=== PATIENT | male | born 1955 | race Caucasian/White ===

== ENCOUNTER 2019-05-16 10:30 | Inpatient (IN) ==
[2019-05-16 11:27] LABS: Basophils # 0.1 K/mcL (0.0-0.2); Basophils % 0.6 %; Eosinophils # 0.1 K/mcL (0.0-0.6); Eosinophils % 1.5 %; Hematocrit 20.9 % (37.5-50.1); Lymphocytes # 1.3 K/mcL (0.6-4.6); Lymphocytes % 14.7 %; Mean Corpuscular HGB Conc 25.4 g/dL (31.6-35.5); Mean Corpuscular Hemoglobin 16.1 pg (28.0-33.3); Mean Corpuscular Volume 63.3 fL (83.0-100.0); Mean Platelet Volume 9.1 fL (9.4-12.4); Monocytes % 10.7 %; Neutrophils # 6.5 K/mcL (1.6-8.9); Nucleated Red Blood Cells 0.9 /100 WBC (0); Platelet Count 433 K/mcL (140-400); Red Cell Distribution Width 19.4 % (11.5-14.5); Segmented Neutrophils % 71.5 %; White Blood Count 9.1 K/mcL (4.3-11.1)
[2019-05-16 11:41] LABS: Prothrombin Time 11.5 Seconds (9.4-12.1)
[2019-05-16 11:43] LABS: BUN/Creatinine Ratio 16 (6-26); Blood Urea Nitrogen 15 mg/dL (8-23); Calcium 9.4 mg/dL (8.6-10.3); Carbon Dioxide 22 mEq/L (23-29); Chloride 103 mEq/L (98-107); Glucose 146 mg/dL (70-105); Osmolality,Calculated 289 (280-300); Potassium 3.9 mEq/L (3.5-5.1); Sodium 138 mEq/L (136-145); eGFR For African Americans > 60 (> 60); eGFR For Non-African Americans > 60 (> 60)
[2019-05-16 11:44] LABS: Activated Partial Thrombo Time 26.6 Seconds (26.0-36.0)
[2019-05-16 11:49] LABS: Hemoglobin 5.3 g/dL (12.9-16.9)
[2019-05-16 12:01] LABS: Hypochromasia Present (Not Present); Polychromasia 1+ (Not Present)
[2019-05-16 12:02] LABS: Anisocytosis 1+ (Not Present); Microcytosis Present (Not Present)
[2019-05-16] MEDS ORDERED: Naloxone 0.4 MG/ML INJ IVP PRN (12:11)
[2019-05-16] MEDS ORDERED: Ondansetron 4 MG/2 ML VIAL IVP PRN (12:11)
[2019-05-16] MEDS ORDERED: *HR* Dextrose 50 % in Water (Syg) 50 ML SYRINGE IVP PRN (12:13)
[2019-05-16] MEDS ORDERED: D5% in Water 1,000 ML IVC PRN (12:13)
[2019-05-16] MEDS ORDERED: Dextrose Gel 15 GM/37.5 ML TUBE PO PRN ×2 (12:13)
[2019-05-16] MEDS ORDERED: 0.9 % Sodium Chloride 250 ML ONE ×2 (12:30→15:56)
[2019-05-16 12:38] LABS: Alanine Aminotransferase 45 Units/L (7-52); Albumin 4.2 g/dL (3.5-5.7); Albumin/Globulin Ratio 1.5 (1.1-2.2); Alkaline Phosphatase 49 Units/L (34-104); Aspartate Amino Transferase 34 Units/L (13-39); Bilirubin,Direct 0.1 mg/dL (0.0-0.2); Bilirubin,Indirect 0.2 mg/dL (0.0-1.2); Bilirubin,Total 0.3 mg/dL (0.3-1.0); Globulin 2.8 g/dL (2.4-3.5)
[2019-05-16] MEDS: Pantoprazole 40 MG VIAL IVP SCH ×2 (15:18→16:47)
[2019-05-16] MEDS: Insulin LISPRO 300 UNITS/3 ML VIAL SQ SCH (16:47)
[2019-05-16] MEDS: D5% in 0.9% NACL 1,000 ML IVC SCH (20:08)
[2019-05-16 21:05] LABS: Mean Corpuscular Hemoglobin 19.3 pg (28.0-33.3); Segmented Neutrophils % 63.2 %
[2019-05-16 21:07] LABS: Basophils # 0.1 K/mcL (0.0-0.2); Basophils % 0.6 %; Eosinophils # 0.2 K/mcL (0.0-0.6); Eosinophils % 2.3 %; Hematocrit 26.3 % (37.5-50.1); Hemoglobin 7.3 g/dL (12.9-16.9); Immature Granulocytes % 1.6 % (0-4); Lymphocytes # 1.7 K/mcL (0.6-4.6); Lymphocytes % 18.8 %; Mean Corpuscular HGB Conc 27.8 g/dL (31.6-35.5); Mean Corpuscular Volume 69.6 fL (83.0-100.0); Mean Platelet Volume 9.1 fL (9.4-12.4); Monocytes # 1.2 K/mcL (0.0-1.3); Monocytes % 13.5 %; Neutrophils # 5.6 K/mcL (1.6-8.9); Nucleated Red Blood Cells 0.9 /100 WBC (0); Platelet Count 401 K/mcL (140-400); Red Blood Count 3.78 M/mcL (4.19-5.50); Red Cell Distribution Width 23.4 % (11.5-14.5); White Blood Count 8.9 K/mcL (4.3-11.1)
[2019-05-16 21:29] LABS: Anisocytosis 3+ (Not Present); Hypochromasia Present (Not Present); Microcytosis Present (Not Present)
[2019-05-16 22:19] LABS: Hematocrit 25.3 % (37.5-50.1); Hemoglobin 7.1 g/dL (12.9-16.9)
[2019-05-17] MEDS: Insulin LISPRO 300 UNITS/3 ML VIAL SQ SCH ×4 (01:02→17:11)
[2019-05-17 04:22] LABS: Hemoglobin 7.2 g/dL (12.9-16.9)
[2019-05-17 04:24] LABS: Hematocrit 25.4 % (37.5-50.1); Mean Corpuscular HGB Conc 28.3 g/dL (31.6-35.5); Mean Corpuscular Hemoglobin 19.3 pg (28.0-33.3); Mean Corpuscular Volume 67.9 fL (83.0-100.0); Mean Platelet Volume 9.3 fL (9.4-12.4); Platelet Count 395 K/mcL (140-400); Red Blood Count 3.74 M/mcL (4.19-5.50); Red Cell Distribution Width 22.9 % (11.5-14.5); White Blood Count 8.5 K/mcL (4.3-11.1)
[2019-05-17 04:48] LABS: BUN/Creatinine Ratio 13 (6-26); Blood Urea Nitrogen 12 mg/dL (8-23); Carbon Dioxide 23 mEq/L (23-29); Chloride 109 mEq/L (98-107); Glucose 106 mg/dL (70-105); Magnesium 2.4 mg/dL (1.6-2.6); Osmolality,Calculated 288 (280-300); Phosphorous 3.7 mg/dL (2.7-4.5); Potassium 3.8 mEq/L (3.5-5.1); Sodium 139 mEq/L (136-145); eGFR For African Americans > 60 (> 60); eGFR For Non-African Americans > 60 (> 60)
[2019-05-17 04:50] LABS: % Iron Saturation 2 % (20-55); Iron 11 mcg/dL (65-175); Transferrin 379 mg/dL (203-362)
[2019-05-17] MEDS: Pantoprazole 40 MG VIAL IVP SCH ×2 (06:44→17:10)
[2019-05-17] MEDS: D5% in 0.9% NACL 1,000 ML IVC SCH ×2 (09:41→22:09)
[2019-05-17] MEDS: Iron Sucrose Complex 200 MG in 0.9 % Sodium Chloride 100 ML IVPB SCH (10:43)
[2019-05-17] MEDS ORDERED: SODIUM CHLORIDE/NAHCO3/KCL/PEG 4,000 ML SOLN.RECON PO ONE (17:00)
[2019-05-18] MEDS: D5% in 0.9% NACL 1,000 ML IVC SCH ×2 (04:45→12:29)
[2019-05-18] MEDS: Insulin LISPRO 300 UNITS/3 ML VIAL SQ SCH ×4 (04:45→17:44)
[2019-05-18] MEDS: Pantoprazole 40 MG VIAL IVP SCH ×2 (05:39→17:44)
[2019-05-18 07:27] LABS: Mean Corpuscular Hemoglobin 19.2 pg (28.0-33.3); Red Cell Distribution Width 23.4 % (11.5-14.5)
[2019-05-18 07:28] LABS: Hematocrit 24.9 % (37.5-50.1); Hemoglobin 6.9 g/dL (12.9-16.9); Mean Corpuscular HGB Conc 27.7 g/dL (31.6-35.5); Mean Corpuscular Volume 69.2 fL (83.0-100.0); Mean Platelet Volume 9.4 fL (9.4-12.4); Platelet Count 403 K/mcL (140-400); White Blood Count 9.1 K/mcL (4.3-11.1)
[2019-05-18 07:42] LABS: BUN/Creatinine Ratio 7 (6-26); Blood Urea Nitrogen 7 mg/dL (8-23); Calcium 8.9 mg/dL (8.6-10.3); Carbon Dioxide 25 mEq/L (23-29); Chloride 107 mEq/L (98-107); Glucose 100 mg/dL (70-105); Osmolality,Calculated 292 (280-300); Potassium 3.6 mEq/L (3.5-5.1); Sodium 142 mEq/L (136-145); eGFR For African Americans > 60 (> 60); eGFR For Non-African Americans > 60 (> 60)
[2019-05-18] MEDS: Iron Sucrose Complex 200 MG in 0.9 % Sodium Chloride 100 ML IVPB SCH (08:41)
[2019-05-18] MEDS ORDERED: Propofol 500 MG/50 ML INFUS..BTL ONE (12:26)
[2019-05-18] MEDS ORDERED: *HR* Heparin 5,000 UNIT/ML VIAL ONE (12:47)
[2019-05-18] MEDS ORDERED: Lidocaine -MPF 2% 2 ML VIAL ONE (12:48)
[2019-05-18] MEDS ORDERED: *HR* Propofol 200 MG/20 ML VIAL IVP ONE ×2 (12:59→13:10)
[2019-05-18] MEDS ORDERED: 0.9 % Sodium Chloride 1,000 ML IVC SCH (13:30)
[2019-05-18] MEDS ORDERED: 0.9 % Sodium Chloride 250 ML ONE (17:40)
[2019-05-19] MEDS: Insulin LISPRO 300 UNITS/3 ML VIAL SQ SCH (01:21)
[2019-05-19 02:47] LABS: Hemoglobin 7.8 g/dL (12.9-16.9)
[2019-05-19 02:48] LABS: Hematocrit 27.8 % (37.5-50.1); Mean Corpuscular HGB Conc 28.1 g/dL (31.6-35.5); Mean Corpuscular Hemoglobin 20.5 pg (28.0-33.3); Mean Platelet Volume 9.3 fL (9.4-12.4); Platelet Count 390 K/mcL (140-400); Red Blood Count 3.81 M/mcL (4.19-5.50); Red Cell Distribution Width 25.2 % (11.5-14.5); White Blood Count 9.4 K/mcL (4.3-11.1)
[2019-05-19 07:29] VITALS: BP 127/74
[2019-05-19] MEDS: D5% in 0.9% NACL 1,000 ML IVC SCH (07:29)
[2019-05-19] MEDS ORDERED: Insulin LISPRO 300 UNITS/3 ML VIAL SQ SCH ×2 (07:30→21:00)
[2019-05-19] MEDS: Iron Sucrose Complex 200 MG in 0.9 % Sodium Chloride 100 ML IVPB SCH (08:18)
== END 2019-05-19 10:15 | disposition home or self-care (01) | DRG 379 ==
LOC: EMEROOARM 10:30 → 2ANU 10:30 → SUATTDRO 12:45 → 2ANU 13:41
PROVIDERS: ADMIT Internal Medicine; ATTEND Internal Medicine
PROC: ENDOEBX (2019-05-18 13:00)

== ENCOUNTER 2019-11-04 05:12 | Observation (INO) ==
[2019-11-04] MEDS ORDERED: 0.9 % Sodium Chloride 1,000 ML IVC ONE (06:32)
[2019-11-04] MEDS ORDERED: Ondansetron 4 MG/2 ML VIAL IVP ONE (06:32)
[2019-11-04 06:35] LABS: INR 1.1; Prothrombin Time 12.6 Seconds (9.4-12.1)
[2019-11-04] MEDS ORDERED: Pantoprazole 40 MG VIAL IVP ONE (06:35)
[2019-11-04 06:38] LABS: Activated Partial Thrombo Time 25.9 Seconds (26.0-36.0)
[2019-11-04 06:42] LABS: Basophils # 0.1 K/mcL (0.0-0.2); Basophils % 0.4 %; Eosinophils % 0.3 %; Hematocrit 35.8 % (37.5-50.1); Hemoglobin 11.5 g/dL (12.9-16.9); Immature Granulocytes % 0.6 % (0-4); Lymphocytes # 1.3 K/mcL (0.6-4.6); Lymphocytes % 10.6 %; Mean Corpuscular HGB Conc 32.1 g/dL (31.6-35.5); Mean Corpuscular Hemoglobin 25.6 pg (28.0-33.3); Mean Corpuscular Volume 79.7 fL (83.0-100.0); Mean Platelet Volume 9.6 fL (9.4-12.4); Monocytes % 8.2 %; Neutrophils # 9.4 K/mcL (1.6-8.9); Platelet Count 281 K/mcL (140-400); Red Blood Count 4.49 M/mcL (4.19-5.50); Red Cell Distribution Width 21.6 % (11.5-14.5); Segmented Neutrophils % 79.9 %; White Blood Count 11.8 K/mcL (4.3-11.1)
[2019-11-04 06:53] LABS: Alanine Aminotransferase 41 Units/L (7-52); Albumin/Globulin Ratio 1.5 (1.1-2.2); Alkaline Phosphatase 55 Units/L (34-104); Aspartate Amino Transferase 21 Units/L (13-39); BUN/Creatinine Ratio 34 (6-26); Bilirubin,Total 0.3 mg/dL (0.3-1.0); Blood Urea Nitrogen 30 mg/dL (8-23); Carbon Dioxide 19 mEq/L (23-29); Chloride 103 mEq/L (98-107); Globulin 2.7 g/dL (2.4-3.5); Glucose 237 mg/dL (70-105); Lipase 10 Units/L (11-82); Osmolality,Calculated 294 (280-300); Potassium 4.3 mEq/L (3.5-5.1); Sodium 135 mEq/L (136-145); Total Protein 6.7 g/dL (6.4-8.9); Troponin I < 0.03 ng/mL (< 0.04); eGFR For African Americans > 60 (> 60); eGFR For Non-African Americans > 60 (> 60)
[2019-11-04] MEDS ORDERED: Naloxone 0.4 MG/ML INJ IVP PRN (09:16)
[2019-11-04] MEDS ORDERED: Ondansetron 4 MG/2 ML VIAL IVP PRN (09:16)
[2019-11-04] MEDS: 0.9 % Sodium Chloride 1,000 ML IVC SCH (09:49)
[2019-11-04] MEDS: Pantoprazole 40 MG in 0.9 % Sodium Chloride Mini Bag 100 ML IVC SCH ×2 (09:51→16:00)
[2019-11-04 17:02] LABS: Basophils % 0.3 %; Eosinophils # 0.1 K/mcL (0.0-0.6); Eosinophils % 0.5 %; Hematocrit 34.1 % (37.5-50.1); Hemoglobin 10.9 g/dL (12.9-16.9); Immature Granulocytes % 0.5 % (0-4); Lymphocytes # 2.1 K/mcL (0.6-4.6); Lymphocytes % 18.1 %; Mean Corpuscular Hemoglobin 25.6 pg (28.0-33.3); Mean Corpuscular Volume 80.2 fL (83.0-100.0); Mean Platelet Volume 9.5 fL (9.4-12.4); Monocytes # 1.2 K/mcL (0.0-1.3); Neutrophils # 8.3 K/mcL (1.6-8.9); Platelet Count 283 K/mcL (140-400); Red Blood Count 4.25 M/mcL (4.19-5.50); Red Cell Distribution Width 21.8 % (11.5-14.5); Segmented Neutrophils % 70.6 %; White Blood Count 11.7 K/mcL (4.3-11.1)
[2019-11-04] MEDS ORDERED: *HR* Propofol 200 MG/20 ML VIAL IVP ONE (17:04)
[2019-11-04] MEDS ORDERED: Lidocaine -MPF 2% 2 ML VIAL ONE (17:04)
[2019-11-04] MEDS ORDERED: *HR* FentaNYL (PF) 100 MCG/2 ML VIAL ONE (17:04)
[2019-11-04] MEDS: Gabapentin 300 MG CAPSULE PO SCH (20:05)
[2019-11-05] MEDS: 0.9 % Sodium Chloride 1,000 ML IVC SCH ×2 (00:13→10:48)
[2019-11-05] MEDS: Pantoprazole 40 MG in 0.9 % Sodium Chloride Mini Bag 100 ML IVC SCH ×3 (00:34→07:11)
[2019-11-05 08:31] LABS: Basophils % 0.5 %; Eosinophils # 0.2 K/mcL (0.0-0.6); Eosinophils % 2.2 %; Hematocrit 28.4 % (37.5-50.1); Immature Granulocytes % 0.5 % (0-4); Lymphocytes # 1.8 K/mcL (0.6-4.6); Lymphocytes % 20.6 %; Mean Corpuscular HGB Conc 31.7 g/dL (31.6-35.5); Mean Corpuscular Hemoglobin 25.6 pg (28.0-33.3); Mean Corpuscular Volume 80.9 fL (83.0-100.0); Mean Platelet Volume 9.2 fL (9.4-12.4); Monocytes # 0.9 K/mcL (0.0-1.3); Neutrophils # 5.7 K/mcL (1.6-8.9); Platelet Count 228 K/mcL (140-400); Red Blood Count 3.51 M/mcL (4.19-5.50); Segmented Neutrophils % 66.2 %; White Blood Count 8.6 K/mcL (4.3-11.1)
[2019-11-05 08:48] LABS: BUN/Creatinine Ratio 18 (6-26); Blood Urea Nitrogen 16 mg/dL (8-23); Calcium 8.3 mg/dL (8.6-10.3); Carbon Dioxide 22 mEq/L (23-29); Chloride 110 mEq/L (98-107); Glucose 118 mg/dL (70-105); Magnesium 1.8 mg/dL (1.6-2.6); Osmolality,Calculated 288 (280-300); Phosphorous 3.2 mg/dL (2.7-4.5); Potassium 3.9 mEq/L (3.5-5.1); Sodium 138 mEq/L (136-145); eGFR For African Americans > 60 (> 60); eGFR For Non-African Americans > 60 (> 60)
[2019-11-05] MEDS ORDERED: Iron Sucrose Complex 400 MG in 0.9 % Sodium Chloride 250 ML IVPB SCH (12:02)
[2019-11-05] MEDS: Pantoprazole 40 MG VIAL IVP SCH (18:17)
[2019-11-05] MEDS: Gabapentin 300 MG CAPSULE PO SCH (21:05)
[2019-11-06] MEDS: Pantoprazole 40 MG VIAL IVP SCH (05:23)
[2019-11-06 05:53] LABS: Hematocrit 27.6 % (37.5-50.1); Hemoglobin 8.8 g/dL (12.9-16.9); Mean Corpuscular HGB Conc 31.9 g/dL (31.6-35.5); Mean Corpuscular Hemoglobin 25.9 pg (28.0-33.3); Mean Corpuscular Volume 81.2 fL (83.0-100.0); Platelet Count 247 K/mcL (140-400); White Blood Count 6.8 K/mcL (4.3-11.1)
[2019-11-06 09:49] VITALS: BP 123/68
[2019-11-06] MEDS: Iron Sucrose Complex 400 MG in 0.9 % Sodium Chloride 250 ML IVPB SCH ×2 (10:11→10:12)
== END 2019-11-06 13:07 | disposition home or self-care (01) ==
LOC: EMEROOARM 05:12 → 3ANU 05:12
PROVIDERS: ADMIT Student in an Organized Health Care Education/Training Program; ATTEND Student in an Organized Health Care Education/Training Program
PROC: ENDOEBX (2019-11-04 17:00)

== ENCOUNTER 2020-04-26 06:17 | Inpatient (IN) ==
[2020-04-26] MEDS ORDERED: CeFAZolin Syr 2,000MG/20 ML 2,000 MG/20 ML SYRINGE IVPB ONE (06:30)
[2020-04-26] MEDS ORDERED: Ringers Solution, Lactated 1,000 ML IVC SCH (06:30)
[2020-04-26] MEDS ORDERED: Acetaminophen IV 1,000 MG/100 ML INFUS..BTL IVPB ONE ×2 (06:31→07:06)
[2020-04-26] MEDS ORDERED: *HR* Propofol 200 MG/20 ML VIAL IVP ONE (06:56)
[2020-04-26] MEDS ORDERED: *HR* Succinylcholine 200 MG/10 ML VIAL IVP ONE (06:56)
[2020-04-26] MEDS ORDERED: Lidocaine -MPF 2% 2 ML VIAL ONE (06:56)
[2020-04-26] MEDS ORDERED: Dexamethasone 4 MG/ML VIAL ONE (06:56)
[2020-04-26] MEDS ORDERED: *HR* Rocuronium Bromide 50 MG/5 ML VIAL ONE ×2 (06:56→09:44)
[2020-04-26] MEDS ORDERED: *HR* FentaNYL (PF) 100 MCG/2 ML VIAL ONE (06:56)
[2020-04-26] MEDS ORDERED: Ondansetron 4 MG/2 ML VIAL ONE (06:56)
[2020-04-26] MEDS ORDERED: Lidocaine -MPF 4% 5 ML AMPUL ONE (06:57)
[2020-04-26] MEDS ORDERED: Famotidine 20 MG/2 ML VIAL IVP ONE (07:06)
[2020-04-26] MEDS ORDERED: *HR* OxyCODONE Immed Rel 5 MG TABLET PO PRN (07:10)
[2020-04-26] MEDS ORDERED: Ondansetron 4 MG/2 ML VIAL IVP ONE (07:10)
[2020-04-26] MEDS ORDERED: *HR* Meperidine 25 MG/ML SYRINGE IVP PRN (07:10)
[2020-04-26] MEDS ORDERED: *HR* HYDROmorphone PF 0.5 MG/0.5 ML SYRINGE IVP PRN (07:10)
[2020-04-26] MEDS ORDERED: *HR* Promethazine 25 MG/ML VIAL IVP PRN (07:10)
[2020-04-26] MEDS ORDERED: *HR* Vasopressin 20 UNIT/ML VIAL ONE (07:17)
[2020-04-26] MEDS ORDERED: Scopolamine Patch 1.5 MG PATCH.TD72 TD ONE ×2 (07:20→11:10)
[2020-04-26] MEDS ORDERED: *HR* Midazolam HCl 2 MG/2 ML VIAL ONE (07:23)
[2020-04-26] MEDS ORDERED: *HR* HYDROMORPHONE 2 MG/ML VIAL ONE (08:08)
[2020-04-26] MEDS ORDERED: Ketorolac 30 MG/ML VIAL ONE (10:21)
[2020-04-26] MEDS ORDERED: *HR* Labetalol 20 MG/4 ML SYRINGE IVP PRN (11:09)
[2020-04-26] MEDS ORDERED: *HR* OxyCODONE/APAP 5/325 TABLET PO PRN (12:15)
[2020-04-26] MEDS ORDERED: 0.9 % Sodium Chloride 1,000 ML ONE (12:22)
[2020-04-26] MEDS: 0.9 % Sodium Chloride 1,000 ML IVC SCH (14:09)
[2020-04-26] MEDS: CeFAZolin 2 GM/120 ML BAG IVPB SCH ×2 (16:21→23:21)
[2020-04-26] MEDS: *HR* Heparin 5,000 UNIT/ML VIAL SQ SCH (17:59)
[2020-04-27] MEDS: 0.9 % Sodium Chloride 1,000 ML IVC SCH ×2 (03:00→15:10)
[2020-04-27] MEDS: *HR* Heparin 5,000 UNIT/ML VIAL SQ SCH ×2 (04:08→17:21)
[2020-04-27] MEDS: Pantoprazole 40 MG VIAL IVP SCH (10:25)
[2020-04-28] MEDS: 0.9 % Sodium Chloride 1,000 ML IVC SCH (04:17)
[2020-04-28] MEDS: *HR* Heparin 5,000 UNIT/ML VIAL SQ SCH (04:17)
[2020-04-28] MEDS: Pantoprazole 40 MG VIAL IVP SCH (08:06)
[2020-04-28 08:26] VITALS: BP 136/78
== END 2020-04-28 14:32 | disposition home or self-care (01) | DRG 328 ==
LOC: SAMDAY 06:17 → 3ANU 12:04
PROVIDERS: ADMIT Surgery; ATTEND Surgery